=== PATIENT | male | born 1985 | race Two or more races ===

== ENCOUNTER 2022-05-01 04:23 | Day surgery (SDC) | payer OTHER ==
[2022-04-28 13:02] VITALS: BMI 21.9
[2022-05-01] MEDS ORDERED: MIDAZOLAM HCL 2 MG/2 ML SINGLE DOSE VIAL ONE (07:29)
[2022-05-01] MEDS ORDERED: ROCURONIUM BROMIDE 50 MG/5 ML SYRINGE ONE (07:29)
[2022-05-01] MEDS ORDERED: SUCCINYLCHOLINE CHLORIDE 200 MG/10 ML SYRINGE ONE (07:29)
[2022-05-01] MEDS ORDERED: LIDOCAINE HCL/PF 2% SDV 5ML VIAL ONE (07:34)
[2022-05-01] MEDS ORDERED: GLYCOPYRROLATE 0.2 MG/1 ML VIAL ONE ×2 (07:35→08:21)
[2022-05-01] MEDS ORDERED: PROPOFOL 20 ML ONE (07:35)
[2022-05-01] MEDS ORDERED: ONDANSETRON 4 MG/2 ML VIAL ONE (07:56)
[2022-05-01] MEDS ORDERED: DEXAMETHASONE SOD PHOSPHATE 4 MG/1 ML VIAL ONE (07:56)
[2022-05-01] MEDS ORDERED: OXYMETAZOLINE 0.05% NASAL SOLUTION 15 ML BOTTLE NS ONE (08:13)
[2022-05-01] MEDS ORDERED: NEOSTIGMINE METHYLSULFATE 0.5 MG/1 ML - 10 ML MDV ONE (08:21)
[2022-05-01] MEDS ORDERED: ONDANSETRON 4 MG/2 ML VIAL IVPUSH PRN (08:50)
[2022-05-01] MEDS ORDERED: oxyCODONE HCL 5 MG TABLET PO PRN (08:50)
[2022-05-01] MEDS ORDERED: PROMETHAZINE HCL 25 MG/1 ML VIAL IVPB PRN (08:50)
[2022-05-01] MEDS ORDERED: LACTATED RINGERS SOLUTION 1,000 ML IV SCH (09:00)
[2022-05-01 10:53] VITALS: RESP 18
[2022-05-01 13:51] VITALS: BP 112/56; PULSE 64; TEMP 97.7
== END 2022-05-01 13:52 | disposition home or self-care (01) ==
LOC: JASUSAT 04:23
PROVIDERS: ATTEND Otolaryngology
PROC: 0CBR8ZX Excision of Epiglottis, Via Natural or Artificial Opening Endoscopic, Diagnostic (ICD-10-PCS; principal; 2022-05-01 07:30)
DX: D14.1 Benign neoplasm of larynx (principal)
CPT/HCPCS: 88305-TC; 88342-TC; 94760